=== PATIENT | female | born 1955 | race Caucasian/White ===

== ENCOUNTER → 2019-10-15 | Outpatient (CLI) | payer MEDICARE ==
--- NOTE | 2019-10-18 08:35 | RAD ---
EXAM DESCRIPTION: Chest,2 Views CLINICAL HISTORY: HYPERTENSIVE DISORDER COMPARISON: Previous study April 24, 2016 TECHNIQUE: PA/lateral FINDINGS: There is no acute appearing cardiac or pulmonary abnormality. Heart size is normal with normal pulmonary vascularity. No pleural effusion or pneumothorax. Lungs are clear with no consolidating infiltrate. Lateral view shows intact sternum and T-spine. IMPRESSION: No acute process is identified in the chest. Electronically signed by: Kevin Roberts MD 10/18/2019 8:33 AM TRANSIT MIX OPERATOR
== END ==
LOC: LAB.O 11:15
PROVIDERS: ATTEND Family Medicine
DX: I10 Essential (primary) hypertension (principal); R53.83 Other fatigue; E55.9 Vitamin D deficiency, unspecified; E78.5 Hyperlipidemia, unspecified; E66.9 Obesity, unspecified

== ENCOUNTER → 2019-10-26 | Outpatient (CLI) | payer MEDICARE ==
--- NOTE | 2019-10-28 16:38 | MAM ---
EXAM DESCRIPTION: 3D Screening BILATERAL : Digital Mammography. CLINICAL HISTORY: 64 years Female ANNUAL SCREENING . No complaints. No personal history of breast cancer. Remote family history of breast cancer. Menarche age 15. Childbirth age 22. Postmenopausal age unknown. No HRT. Lifetime risk of developing breast cancer (Tyrer-Cuzick model)(%): 5.5. COMPARISON: Baseline study at this facility. No prior reports available. TECHNIQUE: Bilateral CC and MLO projection full-field images, digital tomosynthesis mammographic technique. Bilateral digital 2-D full-field MLO images. CAD not available for tomosynthesis or 2-D images. FINDINGS: The breast parenchymal density pattern is: Scattered areas of fibroglandular density. No skin thickening or nipple retraction. Multiple bilateral solitary microcalcifications ankle and on the scan mostly anterior two thirds of the left breast and anterior third upper outer quadrant right breast. Well-defined round densities partially calcified margins consistent with normal cysts or fatty necrosis in the anterior two thirds of the left breast mostly lateral to the posterior nipple line. No new focal, stellate mass or density, focal asymmetry , and no suspicious microcalcifications bilaterally IMPRESSION: Benign exam. BIRAD CATEGORY: 2 BENIGN FINDINGS. RECOMMENDATIONS: FOLLOW UP: Routine digital bilateral mammographic screening, one year interval from October 2019. Written communication explaining the IMPRESSION and follow-up, will be mailed to the patient and referring health care provider. According to the [employer], yearly mammograms are recommended starting at age 40 and continuing as long as a woman is in good health. Any breast change noted on a breast self-exam should be reported promptly to the patient's healthcare provider. Breast MRI is recommended for women with an approximately 20-25% or greater lifetime risk of breast cancer, including women with a strong family history of breast or ovarian cancer and women who have been treated for Hodgkin's disease. A negative mammographic report should not delay tissue diagnosis in patients with significant clinical history or physical findings. Extremely dense breast tissue limits the sensitivity of digital mammography. Electronically signed by: Corey Leo MD 10/28/2019 4:36 PM CLARIFYING PLANT OPERATOR
== END ==
LOC: MAMMO 10:35
PROVIDERS: ATTEND Family Medicine
DX: Z12.31 Encounter for screening mammogram for malignant neoplasm of breast (principal)

== ENCOUNTER 2019-11-04 07:30 | Day surgery (SDC) | payer MEDICARE ==
[~2019-11-04 07:30] MED LIST: LACTATED RINGERS 1,000 ML ONE; LIDOCAINE 1% 10 ML VIAL INJ ONE; PROPOFOL 200 MG/20 ML VIAL IV ONE
[2019-11-04] MEDS ORDERED: LACTATED RINGERS 1,000 ML IVS ONE (07:40)
[2019-11-04] MEDS ORDERED: fentaNYL CITRATE INJ 50 MCG/ML AMP ONE (08:12)
[2019-11-04] MEDS ORDERED: MIDAZOLAM INJ 2 MG/2 ML VIAL ONE (08:12)
--- NOTE | 2019-11-04 09:33 | OP ---
DATE OF PROCEDURE: 11/04/19 PREOPERATIVE DIAGNOSIS: 1. Screening colonoscopy, first in a 64-year-old woman. POSTOPERATIVE DIAGNOSIS: 1. Colonic polyps. PROCEDURE: 1. Colonoscopy with forceps biopsy times 2 at 10 cm in the mid upper rectum. SURGEON: Kelechi Leach MD ANESTHESIA: General. FINDINGS: The colon was normal but for a very small polyp just beyond 10 cm and then what appeared to be a flat polyp at 10 cm on a fold. A wholesale representative biopsy was taken of this. Otherwise, the appendiceal orifice, terminal ileum were identified. The ascending, transverse and descending colon all free from polyps. No significant diverticulosis was seen. She tolerated the procedure and was taken to Recovery to be discharged. #[id number] [facility]
[2019-11-04 10:12] VITALS: BP 143/83; TEMP 97.6; O2SAT 100
== END 2019-11-04 09:50 | disposition home or self-care (01) ==
LOC: AMB 07:30
PROVIDERS: ATTEND Surgery
DX: Z12.11 Encounter for screening for malignant neoplasm of colon (principal); K63.5 Polyp of colon; K59.09 Other constipation; I10 Essential (primary) hypertension; Z91.040 Latex allergy status; Z88.8 Allergy status to other drugs, medicaments and biological substances; Z79.899 Other long term (current) drug therapy
CPT/HCPCS: 00812; 45380; 88305; J2250; J3010; J3490; J7120